=== PATIENT | female | born 1955 | race Caucasian/White ===

== ENCOUNTER → 2016-11-30 | Outpatient (CLI) | payer BC ==
--- NOTE | 2016-12-02 08:27 | MM ---
Reason for exam: screening (asymptomatic). Last mammogram was performed 1 year and 1 month ago. History: Patient is postmenopausal. Took hormonal contraceptives for 3 years. Physical Findings: A clinical breast exam by your physician is recommended on an annual basis and results should be correlated with mammographic findings. MG Screening Mammo w CAD Bilateral CC and MLO view(s) were taken. Prior study comparison: October 15, 2015, bilateral MG 3d screening mammo w/cad. March 31, 2015, right breast MG diagnostic mammo RT w CAD. September 16, 2014, bilateral MG screening mammo w CAD. September 06, 2013, bilateral digital screening mammo w/CAD. August 16, 2012, bilateral digital screening mammo w/CAD. The breast tissue is heterogeneously dense. This may lower the sensitivity of mammography. No significant changes when compared with prior studies. ASSESSMENT: Negative, BI-RAD 1 RECOMMENDATION: Routine screening mammogram of both breasts in 1 year.
== END | disposition home or self-care (01) ==
LOC: RADMAMWWP 12:59
PROVIDERS: ATTEND Obstetrics & Gynecology
DX: Z12.31 Encounter for screening mammogram for malignant neoplasm of breast (principal)

== ENCOUNTER → 2017-12-22 | Outpatient (CLI) | payer BC ==
--- NOTE | 2017-12-25 09:06 | MM ---
Reason for exam: screening (asymptomatic). Last mammogram was performed 1 year and 1 month ago. History: Patient is postmenopausal. Took hormonal contraceptives for 3 years. Physical Findings: A clinical breast exam by your physician is recommended on an annual basis and results should be correlated with mammographic findings. MG Screening Mammo w CAD Bilateral CC and MLO view(s) were taken. Prior study comparison: November 30, 2016, bilateral MG screening mammo w CAD. October 15, 2015, bilateral MG 3d screening mammo w/cad. The breast tissue is heterogeneously dense. This may lower the sensitivity of mammography. Finding: There are typically benign diffuse/scattered calcifications in both breasts. No suspicious abnormality. No significant changes in finding since November 30, 2016 and October 15, 2015. ASSESSMENT: Benign, BI-RAD 2 RECOMMENDATION: Routine screening mammogram of both breasts in 1 year.
== END | disposition home or self-care (01) ==
LOC: RADMAMWWP 10:01
PROVIDERS: ATTEND Obstetrics & Gynecology
DX: Z12.31 Encounter for screening mammogram for malignant neoplasm of breast (principal)
CPT/HCPCS: 77067

== ENCOUNTER → 2020-09-30 | Outpatient (CLI) | payer BC, MEDICARE ==
--- NOTE | 2020-09-30 14:19 | MM ---
Reason for exam: screening (asymptomatic). Last mammogram was performed 1 year and 8 months ago. History: Patient is postmenopausal. Took hormonal contraceptives for 3 years. Physical Findings: A clinical breast exam by your physician is recommended on an annual basis and results should be correlated with mammographic findings. MG 3D Screening Mammo W/Cad Bilateral CC and MLO view(s) were taken. Prior study comparison: January 14, 2019, bilateral MG 3d screening mammo w/cad. December 22, 2017, bilateral MG screening mammo w CAD. November 30, 2016, bilateral MG screening mammo w CAD. The breast tissue is heterogeneously dense. This may lower the sensitivity of mammography. No significant changes when compared with prior studies. ASSESSMENT: Benign, BI-RAD 2 RECOMMENDATION: Routine screening mammogram of both breasts in 1 year.
== END | disposition home or self-care (01) ==
LOC: RADMAMWWP 12:29
PROVIDERS: ATTEND Obstetrics & Gynecology
DX: Z12.31 Encounter for screening mammogram for malignant neoplasm of breast (principal)
CPT/HCPCS: 77063; 77067

== ENCOUNTER → 2021-04-02 | Outpatient (CLI) | payer MEDICARE ==
--- NOTE | 2021-04-05 16:36 | BD ---
EXAMINATION TYPE: Axial Bone Density DATE OF EXAM: 04/02/2021 COMPARISON: 06.07.2006 CLINICAL HISTORY: 65 YR OLD FEMALE......ICD-10 CODE: N95.1 POST MENOPAUSAL Height: 63 Weight: 126 FRAX RISK QUESTIONS: NOTHING ADDITIONAL TO ADD HERE RISK FACTORS HISTORY OF: Family History of Osteoporosis: YES, MOTHER NO HIP FX Postmenopausal woman: YES, AT AGE 53 Hyperparathyroidism: NO Adrenal Insufficiency: NO MEDICATIONS: Additional Medications: STATIN FOR CHOLESTEROL, VIT D AND MULTIVITAMIN Additional History: CHOLESTEROL EXAM MEASUREMENTS: Bone mineral densitometry was performed using the [employer] System. Bone mineral density as measured about the Lumbar spine is: ----- L1-L4(G/cm2): 1.041 T Score Values are as follows: ----- L1: -1.9 ----- L2: -1.9 ----- L3: -0.6 ----- L4: -0.6 ----- L1-L4: -1.2 Bone mineral density has: Decreased -17.7% SINCE STUDY OF 06.07.2006 Bone mineral density about the R hip (g/cm2): 0.833 Bone mineral density about the L hip (g/cm2): 0.797 T Score values are as follows: -----R Neck: -1.7 -----L Neck: -1.7 -----R Total: -1.4 -----L Total: -1.7 Bone mineral density has: Decreased -26.0% SINCE STUDY OF 06.07.2006 FRAX%s: THERE IS A 9.4% CHANCE FOR A MAJOR OSTEOPOROTIC FX AND A 1.3% FOR HIP......PROBABILITY FOR FX IN 10 YRS TIME IMPRESSION: Osteopenia (T Score between -2.5 and -1). There is slightly increased risk of fracture and the patient may be considered for treatment. Re-Screen 2-5 years. NOTE: T-SCORE=SD OF THE YOUNG ADULT MEAN.
== END | disposition home or self-care (01) ==
LOC: RADBDWWP 10:07
PROVIDERS: ATTEND Obstetrics & Gynecology
DX: Z13.820 Encounter for screening for osteoporosis (principal); M85.89 Other specified disorders of bone density and structure, multiple sites; Z78.0 Asymptomatic menopausal state
CPT/HCPCS: 77080

== ENCOUNTER → 2021-12-31 | Outpatient (CLI) | payer MEDICARE ==
--- NOTE | 2022-01-03 11:51 | MM ---
Reason for exam: screening (asymptomatic). Last mammogram was performed 1 year and 3 months ago. History: Patient is postmenopausal. Took hormonal contraceptives for 3 years. Physical Findings: A clinical breast exam by your physician is recommended on an annual basis and results should be correlated with mammographic findings. MG 3D Screening Mammo W/Cad Bilateral CC and MLO view(s) were taken. Prior study comparison: September 30, 2020, bilateral MG 3d screening mammo w/cad. January 18, 2019, right breast MG 3d work up w/cad RT. The breast tissue is heterogeneously dense. This may lower the sensitivity of mammography. No significant changes when compared with prior studies. ASSESSMENT: Benign, BI-RAD 2 RECOMMENDATION: Routine screening mammogram of both breasts in 1 year.
== END | disposition home or self-care (01) ==
LOC: RADMAMWWP 13:57
PROVIDERS: ATTEND Obstetrics & Gynecology
DX: Z12.31 Encounter for screening mammogram for malignant neoplasm of breast (principal); Z78.0 Asymptomatic menopausal state
CPT/HCPCS: 77063; 77067

== ENCOUNTER → 2023-04-06 | Outpatient (CLI) | payer MEDICARE ==
--- NOTE | 2023-04-06 19:03 | BD ---
EXAMINATION TYPE: Axial Bone Density DATE OF EXAM: 04/06/2023 CLINICAL HISTORY: 67 year old Female. ICD-10 CODE: M85.88 OTH DISRD OF BONE DENSITY AND STRUCTURE, O T Height: 62 Weight: 127.7 FRAX RISK QUESTIONS: Alcohol (3 or more units per day): no Family History (Parent hip fracture): no Glucocorticoids (More than 3mos): no (Ex: prednisone, prednisolone, methylprednisolone, dexamethasone, and hydrocortisone). History of Fracture in Adulthood: no Secondary Osteoporosis: 1. Type 1 Diabetes: no 2. Hyperthyroidism: no 3. Menopause before 45: no 4. Malnutrition: no 5. Chronic liver disease: no Rheumatoid Arthritis: no Current Tobacco Use: no RISK FACTORS HISTORY OF: Surgery to Spine/Hip(right/left)/Wrist (right/left): no Family History of Osteoporosis: no Active: yes Diet low in dairy products/other sources of calcium: no Postmenopausal woman: yes Lost more than 2 inches in height since high school: no MEDICATIONS: Additional History: EXAM MEASUREMENTS: Bone mineral densitometry was performed using the [employer] System. Bone mineral density as measured about the Lumbar spine is: ----- L1-L4(G/cm2): 0.987 T Score Values are as follows: ----- L1: -2.1 ----- L2: -3.1 ----- L3: -0.4 ----- L4: -1.0 ----- L1-L4: -1.6 Z Score Values are as follows: ----- L1: -0.3 ----- L2: -1.3 ----- L3: 1.5 ----- L4: 0.8 ----- L1-L4: 0.3 Bone mineral density has: decreased -5.2 % since study of: 04.02.2021 Bone mineral density about the R hip (g/cm2): 0.813 Bone mineral density about the L hip (g/cm2): 0.770 T Score values are as follows: -----R Neck: -2.8 -----L Neck: -3.0 -----R Total: -1.5 -----L Total: -1.9 Z Score values are as follows: -----R Neck: -0.5 -----L Neck: -0.8 -----R Total: 0.0 -----L Total: -0.4 Bone mineral density has: decreased -2.9% since study of: 6.5.2020 FRAX%s: The graph provided illustrates a 10.9% chance for a major osteoporotic fx and a 1.9% chance f or the hips probability for fx in 10 years time. IMPRESSION: Osteopenia (T Score between -2.5 and -1). There is slightly increased risk of fracture and the patient may be considered for treatment. Re-Screen 2-5 years. NOTE: T-SCORE=SD OF THE YOUNG ADULT MEAN.
== END | disposition home or self-care (01) ==
LOC: RADBDWWP 13:22
PROVIDERS: ATTEND Obstetrics & Gynecology
DX: M81.0 Age-related osteoporosis without current pathological fracture (principal); M85.89 Other specified disorders of bone density and structure, multiple sites; Z78.0 Asymptomatic menopausal state
CPT/HCPCS: 77080

== ENCOUNTER 2023-12-01 10:20 | Day surgery (SDC) | payer MEDICARE ==
[2023-11-28 14:05] VITALS: BMI 22.8
[~2023-12-01 10:20] MED LIST: LIDOCAINE 1% (10MG/ML) FOR IV START INTRADERMA PRN
[2023-12-01] MEDS: LACTATED RINGERS 1,000 ML IV SCH (11:05)
[2023-12-01 11:13] VITALS: RESP 16; TEMP 98.1
[2023-12-01] MEDS ORDERED: LIDOCAINE 1% INJ 10MG/ML (20 ML MDV) ONE (11:49)
[2023-12-01] MEDS ORDERED: PROPOFOL 10 MG/ML 20 ML VIAL IV ONE (11:49)
--- NOTE | 2023-12-01 12:09 | P.PCN ---
Date of Procedure: 12/01/23 Procedure(s) Performed: BRIEF HISTORY: Patient is a 68-year-old pleasant female scheduled for an elective colonoscopy as a part of a for colon cancer/positive cologuard. PROCEDURE PERFORMED: Colonoscopy. PREOPERATIVE DIAGNOSIS: Screening for colon cancer/positive cologuard. IV sedation per Anesthesia. PROCEDURE: After informed consent was obtained, the patient, was brought into the endoscopy unit. IV sedation was administered by Anesthesia under continuous monitoring. Digital rectal examination was normal. Initially the Olympus CF-160 flexible video colonoscope was then inserted in the rectum, gradually advanced into the cecum without any difficulty. Careful examination was performed as the scope was gradually being withdrawn. Ileocecal valve and the appendiceal orifice were visualized and appeared normal. Prep was excellent. Mucosa of the cecum, ascending colon, transverse colon, descending colon, sigmoid colon, and rectum appeared normal. Scattered sigmoid diverticulosis. Retroflexion was performed in the rectum and no lesions were seen. The patient tolerated the procedure well. IMPRESSION: Normal-appearing colon from rectum to cecum with no evidence of colorectal neoplasia. Scattered sigmoid diverticulosis. RECOMMENDATIONS: Findings of this examination were discussed with the patient as well as a family. She was advised to have a repeat screening colonoscopy in 10 years..
[2023-12-01 12:41] VITALS: BP 108/70; PULSE 57
== END 2023-12-01 12:59 | disposition home or self-care (01) ==
LOC: ORWHC2ENDO 10:20
PROVIDERS: ATTEND Internal Medicine Gastroenterology
DX: Z12.11 Encounter for screening for malignant neoplasm of colon (principal); R19.5 Other fecal abnormalities; K57.30 Diverticulosis of large intestine without perforation or abscess without bleeding; E78.5 Hyperlipidemia, unspecified; F17.200 Nicotine dependence, unspecified, uncomplicated; Z79.899 Other long term (current) drug therapy
CPT/HCPCS: J2001; J2704; G0121; 45378

== ENCOUNTER → 2024-03-12 | Outpatient (CLI) | payer MEDICARE ==
[2024-03-12 14:55] VITALS: BP 120/77; PULSE 68; RESP 17; TEMP 98.4
--- NOTE | 2024-03-12 16:33 | P.HPOB ---
History of Present Illness H&P Date: 03/12/24 Chief Complaint: The patient is here for her routine gynecologic exam and ma mmogram. This is a 68-year-old with an LMP of 2009. Patient is here to establish with this office. It has been about 1 year since her last pelvic exam. She previously saw Dr. Burgos for her gynecologic care. She is without gynecologic complaints. She has brought some medical records from Dr. Burgos's office which show negative Pap smears on 10/18/2018, 01/14/2021, and 03/14/2023. She denies any cancerous or precancerous changes of the cervix, however, she recalls that she had some kind of cervical scraping done in the by Dr. Clifford. Review of Systems Her weight has been stable. She denies respiratory or cardiac problems. GI: She has occasional constipation and often moves her bowels only about every 2 or 3 days. : She has recently had a low back ache and states this sometimes indicates a UTI and she is requesting a urine test to check for infection. Past Medical History Past Medical History: Hyperlipidemia Additional Past Medical History / Comment(s): RIGHT TENNIS ELBOW - RESOLVED. LOWER BACKACHES OCCASIONALLY. INSOMNIA. 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 History of Any Multi-Drug Resistant Organisms: None Reported Additional Past Surgical History / Comment(s): EXCISION PILONIDAL CYST , COLONOSCOPY 2023(next [id number]). Past Anesthesia/Blood Transfusion Reactions: Previous Problems w/ Anesthesia, Family History of Problems w/ Anesthesia Additional Past Anesthesia/Blood Transfusion Reaction / Comment(s): PT & MOM HARD TO WAKE UP AFTER ANESTHESIA. Past Psychological History: No Psychological Hx Reported Smoking Status: Never smoker Past Alcohol Use History: Occasional (2-3 drinks per week.) Past Drug Use History: None Reported Additional History: She is . - Past Family History Mother Family Medical History: AFIB, Coronary Artery Disease (CAD), Hyperlipidemia Additional Family Medical History / Comment(s): SHINGLES, Phlebitis. Father Family Medical History: AICD/Pacemaker, Coronary Artery Disease (CAD), Myocardial Infarction ([place]) Additional Family Medical History / Comment(s): - HAD TRIPLE BYPASS- DEFIBRILLATOR. Brother(s) Additional Family Medical History / Comment(s): ALS - age 41. Medications and Allergies Home Medications Medication Instructions Recorded Confirmed Type Multivitamins, Thera [Multivitamin] 1 tab PO DAILY 04/13/16 03/12/24 History Calcium (Unknown Dose) 1 tab PO DAILY 11/28/23 03/12/24 History Digestive Advantage Immune Sup 1 tab PO DAILY 11/28/23 03/12/24 History Lovastatin [Mevacor] 10 mg PO HS 11/28/23 03/12/24 History Magnesium (Unknown Dose) 1 tab PO DAILY 11/28/23 03/12/24 History Melatonin (Unknown Dose) 1 tab PO DAILY 11/28/23 03/12/24 History Zolpidem [Ambien] 5 mg PO HS PRN 11/28/23 03/12/24 History Allergies Allergy/AdvReac Type Severity Reaction Status Date / Time No Known Allergies Allergy Verified 03/12/24 14:45 Exam Vital Signs Temp Pulse Resp BP Pulse Ox 03/12/24 14:46 98.4 F 68 17 120/77 100 Intake and Output 03/12/24 03/12/24 03/12/24 06:59 14:59 22:59 Other: Weight 58.967 kg Height 5 feet 2 inches, weight 130 pounds, BMI 23.8. This is a well-developed well-nourished white female who is alert and oriented x 3 in no acute distress. HEENT: is within normal limits Neck: supple without mass or thyromegaly. Chest and lungs: clear to auscultation. Heart: regular rate and rhythm. Breasts: Without masses or discharge. Abdomen: Soft, nontender, without palpable masses. Back: Negative for CVA tenderness. Pelvic exam: Normal external genitalia with mild atrophy. Cervix and vagina reveals mild to moderate atrophy without lesions. There is no unusual discharge. The uterus is midposition, nongravid size, and nontender. Bimanual examination is negative for mass or tenderness. Rectal exam: Rectovaginal exam is negative for mass or discharge and is Hemoccult negative. Bone density test done on 04/06/2023 was read as osteopenia. The right femur neck had a T-score of -2.8 and the left femur neck had a T-score of -3.0. Impression: 1. 68-year-old menopausal female with normal gynecologic exam. 2. Focal osteoporosis. 3. Low back discomfort which the patient states she sometimes gets before a UTI is diagnosed. Plan: 1. Pap smears have been discontinued. This is based on her negative history with Dr. Burgos's records indicating 3 negative Pap smears within the last 10 years. 2. Breast awareness was discussed with the patient. We have also reviewed the signs and symptoms of inflammatory breast cancer. 3. Screening mammogram is due and will be done today. 4. A urine sample has been obtained and will be sent for urinalysis and a urine culture. 5. Osteoporosis management was discussed. We have reviewed the amount of calcium and vitamin D which is recommended. I have also stressed the importance of regular exercise. Because of the focal osteoporosis measurements in the bilateral femur neck regions, I do feel that she is a candidate for treatment of osteoporosis. We had a long discussion regarding treatment including risks of Fosamax including possible increased risk for esophageal ulceration and osteonecrosis of the jaw with jaw or extensive dental surgeries. Information on osteoporosis and on alendronate was given to the patient. She will review this and let me know if she is interested in starting medication for osteoporosis. If she does want to start this medication, we will have her get serum calcium and serum creatinine, or obtain recent records of a blood drawn done by her PCP. 6. She will return in 1 year for her well woman examination.
--- NOTE | 2024-03-13 08:20 | MM ---
Reason for Exam: Screening (asymptomatic). Last mammogram was performed 1 year(s) and 2 month(s) ago. Patient History: Menarche at age 13. First Full-Term at age 28. Postmenopausal. Patient has history of breast feeding. Patient used Hormonal Contraceptives for 3 years. Risk Values: Ping 5 year model risk: 1.9%. NCI Lifetime model risk: 6.2%. Prior Study Comparison: 09/30/2020 Bilateral Screening Mammogram, [facility]. 12/31/2021 Bilateral Screening Mammogram, [facility]. 01/02/2023 Bilateral MG 3D screening mammo w/cad, [facility]. Tissue Density: The breasts are heterogeneously dense, which may obscure small masses. Findings: Analyzed By CAD. Right breast: There is no suspicious group of microcalcifications or new suspicious mass. Left breast: There is no suspicious group of microcalcifications or new suspicious mass. Overall Assessment: Negative, BI-RAD 1 Management: Screening Mammogram of both breasts in [address] [facility] will attempt to contact patient to return for supplemental views and ultrasound if indicated. Patient should continue monthly self-breast exams. A clinical breast exam by your physician is recommended on an annual basis. This exam should not preclude additional follow-up of suspicious palpable abnormalities. Note on Ping scores and lifetime risk: 1. A Ping score greater than 3% is considered moderate risk. If this is the case, consider specialist referral to assess eligibility for a risk reducing agent. 2. If overall lifetime risk for the development of breast cancer is 20% or higher, the patient may qualify for future screening with alternating mammogram and breast MRI. Electronically signed and approved by: Js Hill DO
[2024-03-13 08:26] LABS: Appearance,Urine Clear (Clear); Bacteria,Urine Few /hpf; Bilirubin,Urine Negative (Negative); Blood,Urine Negative (Negative); Color,Urine Colorless; Glucose,Urine (UA) Negative (Negative); Hyaline Casts,Urine 1 /lpf (0-2); Ketones,Urine Negative (Negative); Leukocyte Esterase,Urine Small (Negative); Mucus,Urine Rare /hpf; Nitrite,Urine Positive (Negative); PH, Urine 5.5 (5.0-8.0); Protein,Urine Negative (Negative); RBC,Urine 1 /hpf (0-5); Specific Gravity,Urine 1.008 (1.001-1.035); Squamous Epithelial Cell,Urine <1 /hpf (0-4); Urobilinogen,Urine <2.0 mg/dL (<2.0); WBC,Urine 5 /hpf (0-5)
--- NOTE | 2024-03-13 12:31 | P.PN ---
Progress Note - Text Progress Note Date: 03/13/24 OUTPATIENT FOLLOW-UP NOTE TEST(S)/RESULTS: Urinalysis done on 03/12/2024 had positive nitrite and small leukocyte esterase. METHOD OF NOTIFICATION: This message was left on the patient's voicemail on 03/13/2024 PATIENT COMMENTS: DIAGNOSIS: Cystitis UTI. DISCUSSION: A prescription was sent electronically to [facility] pharmacy on . The prescription is for Macrodantin p.o. twice daily x 7 days. There are no refills. PLAN: She is to call if she has any questions or problems. The urine culture is pending.
== END ==
LOC: WWCWWP 14:29
PROVIDERS: ATTEND Obstetrics & Gynecology
DX: Z12.31 Encounter for screening mammogram for malignant neoplasm of breast (principal); Z78.0 Asymptomatic menopausal state; M81.0 Age-related osteoporosis without current pathological fracture; N39.0 Urinary tract infection, site not specified
CPT/HCPCS: 77063; 77067; 81001; 87086

== ENCOUNTER → 2024-04-19 | Outpatient (CLI) | payer MEDICARE ==
--- NOTE | 2024-04-19 12:59 | FL ---
EXAMINATION TYPE: FL UGI air w small bowel DATE OF EXAM: 04/19/2024 11:21 AM CLINICAL INDICATION:Female, 68 years old with history of R10.9 UNSPECIFIED ABDOMINAL PAIN; COMPARISON: None TECHNIQUE: The procedure was explained and patient history elicited. All patient questions were ans wered prior to start of procedure. A self defense instructor radiograph of the abdomen was also reviewed. Multiple flu oroscopic spot images of the esophagus, stomach and duodenum were obtained following ingestion of liq uid barium and EZ-gas crystals. After the completion of the upper gastrointestinal examination, a de tailed small bowel examination was performed. The patient was asked to ingest additional liquid julianne um and incremental frontal abdominal radiographs were then taken until contrast was visualized in the cecum. Fluoroscopic time: 1 minute 42 seconds min Fluoroscopic images: 0 Radiographs taken: 97 DAP: Not reported [id number] FINDINGS: Upper GI examination: The self defense instructor abdominal radiograph demonstrates a normal bowel gas pattern without dilated loops of small or large bowel. There is no evidence for organomegaly or pneumoperitoneum. No abnormal calcificati ons. The visualized osseous structures are intact. The esophagus appears unremarkable without evidence of focal stricture, ulceration or abnormal outpou keith. Scattered tertiary contractions are visualized. Poor transit of contrast through the esophagu s especially in the prone/flank position. No hiatal hernia was visualized. No evidence of gastroesop hageal reflux was seen. The stomach has a normal course. There is at least 2 focal outpouchings into the fourth portion of the duodenum compatible with duodenal diverticulum.. There is no evidence of f ocal gastric or duodenal ulceration, stricture, or abnormal outpouching. Small bowel mucosal folds ar e felt to be within normal limits. Detailed small bowel examination: Contrast is seen extending from the duodenojejunal junction into the cecum after two hours, which is within the expected time period. The small bowel follows normal distribution and contour without any evidence of extraluminal or intraluminal irregularity. There is no displacement of bowel loops or e xtraluminal extravasation of contrast material. IMPRESSION: 1. Esophageal dysmotility. 2. 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 Could this be the source of the caitlyn ent's pain?
== END | disposition home or self-care (01) ==
LOC: RADFLMAIN 08:02
PROVIDERS: ATTEND Family Medicine
DX: K22.4 Dyskinesia of esophagus (principal); K57.10 Diverticulosis of small intestine without perforation or abscess without bleeding
CPT/HCPCS: 74240; 74248

== ENCOUNTER → 2024-04-19 | Outpatient (CLI) | payer MEDICARE ==
[2024-04-19 15:33] LABS: Basophils # (A) 0.02 X 10*3/uL (0.00-0.10); Basophils % (A) 0.4 %; Bilirubin, Conjugated <0.20 mg/dL (0.20-0.40); Bilirubin,Unconjugated >0.50 mg/dL (0.20-1.00); Eosinophils # (A) 0.14 X 10*3/uL (0.04-0.35); Eosinophils % (A) 2.7 %; HCT 41.5 % (37.2-46.3); HGB 13.4 g/dL (12.0-15.0); Lymphocytes % (A) 38.8 %; MCH 32.4 pg (27.0-32.0); MCHC 32.3 g/dL (32.0-37.0); MCV 100.2 FL (80.0-97.0); Mean Platelet Volume 11.9 FL (9.5-12.2); Monocytes # (A) 0.61 X 10*3/uL (0.20-1.00); Monocytes % (A) 11.8 %; NRBC Per 100 WBC 0 X 10*3/uL (0.00-0.01); Neutrophils # (A) 2.38 X 10*3/uL (1.80-7.70); Neutrophils % (A) 46.1 %; Platelet Count 226 X 10*3/uL (140-440); RBC 4.14 X 10*6/uL (4.10-5.20); RDW 12.7 % (11.5-14.5); Total Bilirubin 0.7 mg/dL (0.3-1.2); WBC 5.16 X 10*3/uL (4.50-10.00)
== END | disposition home or self-care (01) ==
LOC: LABWHC1 07:40
PROVIDERS: ATTEND Family Medicine
DX: D72.819 Decreased white blood cell count, unspecified (principal)
CPT/HCPCS: 36415; 82248; 85025

== ENCOUNTER → 2025-04-08 | Outpatient (CLI) | payer MEDICARE ==
[2025-04-08 10:59] VITALS: BP 101/68; PULSE 70; RESP 16
--- NOTE | 2025-04-08 11:30 | P.HPOB ---
History of Present Illness H&P Date: 04/08/25 Chief Complaint: The patient is here for her routine gynecologic exam and ma mmogram. This is a 69-year-old G2, P2 with an LMP of 2009. The patient is without gynecologic complaints and denies any postmenopausal bleeding. Review of Systems She has lost about 5 pounds over the past year. She denies respiratory or cardiac problems. GI: She has bowel movements about every 2 to 3 days and this is not new for her. Past Medical History Past Medical History: Hyperlipidemia Additional Past Medical History / Comment(s): RIGHT TENNIS ELBOW - RESOLVED. LOWER BACKACHES OCCASIONALLY. INSOMNIA. 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 History of Any Multi-Drug Resistant Organisms: None Reported Additional Past Surgical History / Comment(s): EXCISION PILONIDAL CYST , COLONOSCOPY 2023(next [id number]). Past Anesthesia/Blood Transfusion Reactions: Previous Problems w/ Anesthesia, Family History of Problems w/ Anesthesia Additional Past Anesthesia/Blood Transfusion Reaction / Comment(s): PT & MOM HARD TO WAKE UP AFTER ANESTHESIA. Past Psychological History: No Psychological Hx Reported Smoking Status: Never smoker Past Alcohol Use History: Occasional (About 4 drinks per week.) Past Drug Use History: None Reported Additional History: She is and is sexually active. 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 She usually spends a good part of winter in [place]. - Past Family History Mother Family Medical History: AFIB, Coronary Artery Disease (CAD), Hyperlipidemia Additional Family Medical History / Comment(s): SHINGLES, Phlebitis. Father Family Medical History: AICD/Pacemaker, Coronary Artery Disease (CAD), Myocardial Infarction ([place]) Additional Family Medical History / Comment(s): - HAD TRIPLE BYPASS- DEFIBRILLATOR. Brother(s) Additional Family Medical History / Comment(s): ALS - age 41. Medications and Allergies Home Medications Medication Instructions Recorded Confirmed Type Multivitamins, Thera [Multivitamin] 1 tab PO DAILY 04/13/16 04/08/25 History Calcium (Unknown Dose) 1 tab PO DAILY 11/28/23 04/08/25 History Digestive Advantage Immune Sup 1 tab PO DAILY 11/28/23 04/08/25 History Lovastatin [Mevacor] 10 mg PO HS 11/28/23 04/08/25 History Magnesium (Unknown Dose) 1 tab PO DAILY 11/28/23 04/08/25 History Melatonin (Unknown Dose) 1 tab PO DAILY 11/28/23 04/08/25 History Zolpidem [Ambien] 5 mg PO HS PRN 11/28/23 04/08/25 History Cholecalciferol (Vitamin D3) 125 mcg PO DAILY 04/08/25 04/08/25 History [Vitamin D3 (125 MCG = 5,000 IU)] Allergies Allergy/AdvReac Type Severity Reaction Status Date / Time No Known Allergies Allergy Verified 04/08/25 10:51 Exam Vital Signs Pulse Resp BP Pulse Ox 04/08/25 10:54 70 16 101/68 96 Intake and Output 04/07/25 04/08/25 04/08/25 22:59 06:59 14:59 Other: Weight 56.699 kg Height 5 feet 3 inches, weight 125 pounds, BMI 22.1. This is a well-developed well-nourished white female who is alert and oriented times 3 in no acute distress. HEENT: Within normal limits. NECK: Supple without mass or thyromegaly. CHEST AND LUNGS: Clear to auscultation. HEART: Regular rate and rhythm. BREASTS: Are without mass or discharge. AXILLARY EXAM: Negative for adenopathy. BACK: Negative for CVA tenderness. ABDOMEN: Soft, nontender, without palpable masses. PELVIC EXAM: Normal external genitalia with mild to moderate atrophy. Cervix and vagina appear normal with mild to moderate atrophy. There is no unusual discharge. There is no evidence of prolapse. The uterus is midposition, nongravid size and nontender. There are no palpable adnexal masses or tenderness. RECTAL EXAM: Rectovaginal exam is negative for mass or tenderness and is negative for occult blood. EXTREMITIES: Nontender. IMPRESSION: 1. 69-year-old menopausal female with normal gynecologic exam. 2. Focal osteoporosis. The patient has declined medication for this. PLAN: 1. Pap smears have been discontinued. 2. Self breast awareness was discussed with the patient. We have also discussed symptoms associated with inflammatory breast cancer. 3. Screening mammogram will be done today. 4. Osteoporosis management was discussed. I have stressed the importance of adequate calcium, vitamin D and regular exercise. Recommended amounts of calcium and vitamin D were also discussed. Bone density testing will be done today. We will again consider offering medication for this when we discussed the bone density test results. 5. She was advised to return in one year for her annual well woman exam.
--- NOTE | 2025-04-08 12:27 | MM ---
Reason for Exam: Screening (asymptomatic). Last mammogram was performed 1 year(s) and 1 month(s) ago. Patient History: Menarche at age 13. First Full-Term at age 28. Postmenopausal. Patient has history of breast feeding. Patient used Hormonal Contraceptives for 3 years. Risk Values: Ping 5 year model risk: 1.9%. NCI Lifetime model risk: 5.9%. Prior Study Comparison: 12/31/2021 Bilateral Screening Mammogram, [facility]. 01/02/2023 Bilateral MG 3D screening mammo w/cad, [facility]. 03/12/2024 Bilateral MG 3D screening mammo w/cad, [facility]. Tissue Density: The breasts are heterogeneously dense, which may obscure small masses. Findings: Analyzed By CAD. Benign-appearing vascular calcifications bilaterally is redemonstrated. There are regional benign-appearing small round calcification posteriorly in both breasts redemonstrated. There are new indistinct grouped calcifications in the right breast anteriorly overlying an area of vascular calcification. Overall Assessment: Incomplete: need additional imaging evaluation, BI-RAD 0 Management: Diagnostic Mammogram of the right breast. Advise spot magnification and 3-D true lateral views right breast. Patient should continue monthly self-breast exams. A clinical breast exam by your physician is recommended on an annual basis. This exam should not preclude additional follow-up of suspicious palpable abnormalities. Note on Ping scores and lifetime risk: 1. A Ping score greater than 3% is considered moderate risk. If this is the case, consider specialist referral to assess eligibility for a risk reducing agent. 2. If overall lifetime risk for the development of breast cancer is 20% or higher, the patient may qualify for future screening with alternating mammogram and breast MRI. [facility], , 04/08/2025 12:24 PM. Electronically signed and approved by: Sixto Gonzáles M.D.
--- NOTE | 2025-04-08 13:40 | BD ---
EXAMINATION TYPE: Axial Bone Density DATE OF EXAM: 04/08/2025 CLINICAL HISTORY: 69 years old Female. ICD-10 CODE: Z78.0 POSTMENOPAUSAL , Additional History: Height: 5 ft 3 in Weight: 124 FRAX RISK QUESTIONS: Alcohol (3 or more units per day): no Family History (Parent hip fracture): no Glucocorticoids (More than 3mos): no (Ex: prednisone, prednisolone, methylprednisolone, dexamethasone, and hydrocortisone). History of Fracture in Adulthood: no Secondary Osteoporosis: 1. Type 1 Diabetes: no 2. Hyperthyroidism: no 3. Menopause before 45: no 4. Malnutrition: no 5. Chronic liver disease: no Rheumatoid Arthritis: no Current Tobacco Use: no RISK FACTORS HISTORY OF: Surgery to Spine/Hip(right/left)/Wrist (right/left): no MEDICATIONS: Thyroid Medications: none Osteoporosis Medications: none EXAM MEASUREMENTS: Bone mineral densitometry was performed using the Pel[employer] System. Bone mineral density as measured about the Lumbar spine is: ----- L1-L4(G/cm2): 0.964 T Score Values are as follows: ----- L1: -2.5 ----- L2: -3.3 ----- L3: -0.3 ----- L4: -1.4 ----- L1-L4: -1.8 Z Score Values are as follows: ----- L1: -0.6 ----- L2: -1.4 ----- L3: 1.7 ----- L4: 0.6 ----- L1-L4: 0.2 Bone mineral density has: decreased -2.3 % since study of: 2022 Bone mineral density about the R hip (g/cm2): 0.703 Bone mineral density about the L hip (g/cm2): 0.716 T Score values are as follows: -----R Neck: -2.4 -----L Neck: -2.3 -----R Total: -1.9 -----L Total: -2.0 Z Score values are as follows: -----R Neck: -0.5 -----L Neck: -0.3 -----R Total: -0.3 -----L Total: -0.3 Bone mineral density has: decreased -3.7 % since study of: 2022 FRAX%s: The graph provided illustrates a 13.2 % chance for a major osteoporotic fx and a 3.4 % chance for the hips probability for fx in 10 years time. IMPRESSION: Osteopenia (T Score between -2.5 and -1). There is slightly increased risk of fracture and the patient may be considered for treatment. Re-Screen 2-5 years. NOTE: T-SCORE=SD OF THE YOUNG ADULT MEAN. [facility], , 04/08/2025 1:37 PM
== END ==
LOC: WWCWWP 10:32
PROVIDERS: ATTEND Obstetrics & Gynecology
DX: Z01.419 Encounter for gynecological examination (general) (routine) without abnormal findings (principal); Z12.31 Encounter for screening mammogram for malignant neoplasm of breast; M81.0 Age-related osteoporosis without current pathological fracture; Z78.0 Asymptomatic menopausal state
CPT/HCPCS: 77063; 77067; 77080

== ENCOUNTER → 2025-04-10 | Outpatient (CLI) | payer MEDICARE ==
--- NOTE | 2025-04-10 13:12 | MM ---
Reason for Exam: Additional evaluation requested from abnormal screening. Last screening mammogram was performed less than 1 month ago. Patient History: Menarche at age 13. First Full-Term at age 28. Postmenopausal. Patient has history of breast feeding. Patient used Hormonal Contraceptives for 3 years. Risk Values: Ping 5 year model risk: 1.9%. NCI Lifetime model risk: 5.9%. Tissue Density: Right: The breasts are heterogeneously dense, which may obscure small masses. Findings: Analyzed By CAD. Benign-appearing vascular calcifications. No dominant mass or architectural distortion. Overall Assessment: Probably benign, BI-RAD 3 Management: Diagnostic Mammogram of the right breast in 6 months. . Results were given to the patient verbally at the time of exam. Patient should continue monthly self-breast exams. A clinical breast exam by your physician is recommended on an annual basis. This exam should not preclude additional follow-up of suspicious palpable abnormalities. Note on Ping scores and lifetime risk: 1. A Ping score greater than 3% is considered moderate risk. If this is the case, consider specialist referral to assess eligibility for a risk reducing agent. 2. If overall lifetime risk for the development of breast cancer is 20% or higher, the patient may qualify for future screening with alternating mammogram and breast MRI. [facility], , 04/10/2025 1:09 PM. Electronically signed and approved by: Eugenio Valiente M.D. Radiolog[facility]
== END | disposition home or self-care (01) ==
LOC: RADMAMWWP 12:42
PROVIDERS: ATTEND Obstetrics & Gynecology
DX: R92.8 Other abnormal and inconclusive findings on diagnostic imaging of breast (principal); R92.333 Mammographic heterogeneous density, bilateral breasts; Z78.0 Asymptomatic menopausal state; Z92.0 Personal history of contraception
CPT/HCPCS: 77061; 77065